=== PATIENT | female | born 2000 | race Caucasian/White ===

== ENCOUNTER 2018-09-27 17:12 | Emergency (ER) | payer OTHER ==
[~2018-09-27] VITALS: Ht 180.3 cm; Wt 75.0 kg
[2018-09-27 17:14] VITALS: TEMP 98.3
[2018-09-27 18:56] VITALS: BP 119/81; PULSE 90
== END 2018-09-27 18:57 | disposition home or self-care (01) ==
LOC: COL.ER 17:12
DX: S13.4XXA Sprain of ligaments of cervical spine, initial encounter (principal); S23.3XXA Sprain of ligaments of thoracic spine, initial encounter; V43.52XA Car driver injured in collision with other type car in traffic accident, initial encounter